=== PATIENT | female | born 1965 | race Caucasian/White ===

== ENCOUNTER 2021-05-01 16:26 | Inpatient (IN) | payer MEDICAID ==
[~2021-05-01] VITALS: Ht 165.1 cm; Wt 81.6 kg
[2021-05-01] MEDS ORDERED: VALIUM5 MG PO (16:32)
[2021-05-01] MEDS ORDERED: PROAIR HFA8.5 G1 INH (16:32)
[2021-05-01] MEDS ORDERED: ZOLOFT100 MG PO (16:32)
[2021-05-01 16:55] LABS: BASOPHILS 0.6 % (0-2); EOSINOPHILS 0.8 % (0-7); HEMATOCRIT 44.7 % (36.0-48.0); HEMOGLOBIN 14.8 g/dL (12-16); LYMPHOCYTES 19.9 % (15-50); MCH 28.4 pg (26.0-34.0); MCHC 33.2 g/dL (31.0-37.0); MCV 85.4 fL (80.0-100.0); MEAN PLATELET VOLUME 8.6 fL (7.4-10.4); MONOCYTES 4.9 % (2-11); NEUTROPHILS 73.8 % (40-80); PLATELET COUNT 129 10x3/uL (130-400); RBC 5.23 10x6/uL (4.00-5.40); RDW 14.9 % (11.5-14.5); WBC 7.3 10x3/uL (4.8-10.8)
[2021-05-01 16:58] LABS: ANION GAP 14.6 mmol/L (8-16); CALCIUM 8.9 mg/dL (8.5-10.1); CARBON DIOXIDE 23.4 mmol/L (21.0-32.0); CREATININE - SERUM 0.9 mg/dL (0.6-1.3)
[2021-05-01 17:03] LABS: BILIRUBIN NEGATIVE (NEGATIVE); KETONE NEGATIVE mg/dL (< 1+); NITRITE NEGATIVE (NEGATIVE); SQUAMOUS EPITHELIAL 5 HPF (0-4); UROBILINOGEN 2 mg/dL (< 2); WHITE CELLS - URINE 5 HPF (0-4)
[2021-05-01 17:06] LABS: ALBUMIN 3.5 g/dL (3.4-5.0); BILIRUBIN - TOTAL 0.51 mg/dL (0.2-1.3); MAGNESIUM - SERUM 2.1 mg/dL (1.8-2.4)
[2021-05-01 17:46] LABS: INR 1.23 (0.85-1.17); PROTIME 14.3 SECONDS (11.6-15.0)
[2021-05-01 18:08] LABS: UDS - AMPHET NEGATIVE QUAL (NEGATIVE); UDS - BARB NEGATIVE QUAL (NEGATIVE); UDS - BENZO POSITIVE QUAL (NEGATIVE); UDS - COCAINE NEGATIVE QUAL (NEGATIVE); UDS - OPIATE NEGATIVE QUAL (NEGATIVE); UDS - PCP NEGATIVE QUAL (NEGATIVE); UDS - THC NEGATIVE QUAL (NEGATIVE)
[2021-05-01 22:56] VITALS: BP 147/77
--- NOTE | 2021-05-02 03:57 | NUR ---
I have reviewed this patient and I concur with the Shift Assessment completed by the Licensed Practical Nurse today this shift.
[2021-05-02 05:15] VITALS: BP 104/64
[2021-05-02 06:58] LABS: ALBUMIN 3.2 g/dL (3.4-5.0); ALKALINE PHOSPHATASE 74 U/L (30-120); ALT (SGPT) 46 U/L (10-68); BILIRUBIN - TOTAL 0.46 mg/dL (0.2-1.3); CALC OSMOLALITY 280 mosm/kg (275-300); CARBON DIOXIDE 21.5 mmol/L (21.0-32.0); CHLORIDE - SERUM 110 mmol/L (98-107); CREATININE - SERUM 0.7 mg/dL (0.6-1.3); GLUCOSE 124 mg/dL (74-106); PHOSPHOROUS 3.6 mg/dL (2.5-4.9); POTASSIUM - SERUM 4.1 mmol/L (3.5-5.1); PROTEIN - SERUM 6.3 g/dL (6.4-8.2); SODIUM 141 mmol/L (136-145); UREA NITROGEN 11 mg/dL (7-18); eGFR NON AFRICAN AMERICAN > 90 mL/min (90-120)
[2021-05-02 06:59] LABS: MAGNESIUM - SERUM 2.8 mg/dL (1.8-2.4)
[2021-05-02 07:43] LABS: BASOPHILS 0.5 % (0-2); EOSINOPHILS 2.5 % (0-7); HEMATOCRIT 39.6 % (36.0-48.0); HEMOGLOBIN 13.1 g/dL (12-16); LYMPHOCYTES 40.4 % (15-50); MCH 28.2 pg (26.0-34.0); MCHC 33.1 g/dL (31.0-37.0); MCV 85.2 fL (80.0-100.0); MEAN PLATELET VOLUME 8.4 fL (7.4-10.4); MONOCYTES 7.3 % (2-11); NEUTROPHILS 49.3 % (40-80); RBC 4.64 10x6/uL (4.00-5.40); RDW 15.1 % (11.5-14.5)
--- NOTE | 2021-05-02 07:49 | NUR ---
AAOX4 UPON ENTERING. ADMINISTERED MEDICATION, NO DIFFICULTIES. RESTING IN BED, DENIES ANY NEEDS AT THIS TIME. BED IN LOWEST POSITION, BED RAILS X2, CALL LIGHT WITHIN REACH. WILL CONTINUE POC. ASSESSMENT PERFORMED
[2021-05-02 08:08] LABS: PLATELET COUNT 80 10x3/uL (130-400); WBC 3.1 10x3/uL (4.8-10.8)
[2021-05-02 08:37] LABS: PLATELET ESTIMATE DECREASED
[2021-05-02 09:14] VITALS: BP 113/68
--- NOTE | 2021-05-02 10:30 | NUR ---
PRN ZOFRAN AND ATIVAN IV, TOLERATED WELL. RESTING COMFORTABLY IN BED. DENIES ANY NEEDS AT THIS TIME. WILL CONTINUE POC.
--- NOTE | 2021-05-02 12:19 | NUR ---
CALLED LAB AT THIS TIME AND INFORMED OF NEED OF STAT AMMONIA LEVEL. INFORMED A PHLEBO IS HEADED HERE NOW.
--- NOTE | 2021-05-02 13:00 | NUR ---
PRN ATIVAN FOR ANXIETY. UP RIGHT IN BED. DENIES FURTHER NEEDS AT THIS TIME. WILL CONTINUE POC.
[2021-05-02 13:20] VITALS: Ht 165.1 cm; Wt 81.6 kg
[2021-05-02 13:37] VITALS: BP 113/57
--- NOTE | 2021-05-02 15:06 | NUR ---
PRN ATIVAN FOR ANXIETY. REGULAR MEDICATION GIVEN, NO DIFFICULTIES. COMPLAINING OF RESTLESS LEGS. EDUCATED THAT SCD'S COULD HELP, SHE AGREED TO WEAR THEM. DENIES FURTHER NEEDS AT THIS TIME. WILL CONTINUE POC.
[2021-05-02 17:21] VITALS: BP 114/66
--- NOTE | 2021-05-02 17:57 | NUR ---
IV TO LEFT FOREARM GONE BAD, STARTED NEW IV TO RIGHT FOREARM. WILL CONT TO MONITOR.
[2021-05-02 20:00] VITALS: BP 120/68
[2021-05-03 06:33] VITALS: BP 105/62
[2021-05-03 07:30] LABS: INR 1.25 (0.85-1.17); PROTIME 14.5 SECONDS (11.6-15.0)
--- NOTE | 2021-05-03 07:30 | NUR ---
PT EASILY AWAKENED. LAYING ON LEFT SIDE. STATES SHE IS HUNGRY AND WHERE IS BREAKFAST. CL IN REACH. NO NEEDS AT THIS TIME. WCTM
[2021-05-03 07:38] LABS: HEMATOCRIT 40.4 % (36.0-48.0); LYMPHOCYTE ABS# 1.11 10x3/uL (1.18-3.74); MCH 28.4 pg (26.0-34.0); MCHC 32.2 g/dL (31.0-37.0); MEAN PLATELET VOLUME 11.6 fL (7.4-10.4); NEUTROPHIL ABS# 1.18 10x3/uL (1.56-6.13); PLATELET COUNT 74 10x3/uL (130-400); RBC 4.58 10x6/uL (4.00-5.40); RDW 13.9 % (11.5-14.5); WBC 2.5 10x3/uL (4.8-10.8)
[2021-05-03 07:39] LABS: MCV 88.2 fL (80.0-100.0)
[2021-05-03 08:02] LABS: EOSINOPHILS 9 % (0-7); LYMPHOCYTES 43 % (15-50); NEUTROPHILS 48 % (40-80); PLATELET ESTIMATE DECREASED
[2021-05-03 08:03] LABS: ALBUMIN 2.9 g/dL (3.4-5.0); ANION GAP 9.6 mmol/L (8-16); BILIRUBIN - TOTAL 0.59 mg/dL (0.2-1.3); CALCIUM 8.3 mg/dL (8.5-10.1); CARBON DIOXIDE 26.4 mmol/L (21.0-32.0); MAGNESIUM - SERUM 2.3 mg/dL (1.8-2.4); PHOSPHOROUS 3.4 mg/dL (2.5-4.9); PROTEIN - SERUM 6.8 g/dL (6.4-8.2)
[2021-05-03 08:04] LABS: CREATININE - SERUM 0.9 mg/dL (0.6-1.3)
[2021-05-03 08:37] VITALS: BP 109/55
--- NOTE | 2021-05-03 10:49 | NUR ---
PT LAYING ON RIGHT SIDE. SLEEPING. NO NEEDS AT THIS TIME. WCTM
[2021-05-03 12:04] VITALS: BP 115/55
[2021-05-03 18:10] VITALS: BP 109/56
[2021-05-03 20:00] VITALS: BP 113/57
[2021-05-04 04:00] VITALS: BP 105/61
[2021-05-04 07:04] LABS: BASOPHILS 0.3 % (0-2); EOSINOPHILS 2.8 % (0-7); HEMATOCRIT 40.8 % (36.0-48.0); HEMOGLOBIN 13.6 g/dL (12-16); LYMPHOCYTES 38.1 % (15-50); MCH 28.6 pg (26.0-34.0); MCHC 33.4 g/dL (31.0-37.0); MEAN PLATELET VOLUME 9.1 fL (7.4-10.4); MONOCYTES 6.8 % (2-11); RBC 4.77 10x6/uL (4.00-5.40); RDW 14.7 % (11.5-14.5); WBC 2.5 10x3/uL (4.8-10.8)
[2021-05-04 07:08] LABS: INR 1.19 (0.85-1.17)
[2021-05-04 07:21] LABS: ALBUMIN 2.9 g/dL (3.4-5.0); BILIRUBIN - TOTAL 0.36 mg/dL (0.2-1.3); CALCIUM 8.6 mg/dL (8.5-10.1); CARBON DIOXIDE 27.1 mmol/L (21.0-32.0); CREATININE - SERUM 0.9 mg/dL (0.6-1.3); MAGNESIUM - SERUM 2.3 mg/dL (1.8-2.4); PHOSPHOROUS 3.9 mg/dL (2.5-4.9); POTASSIUM - SERUM 4.1 mmol/L (3.5-5.1); PROTEIN - SERUM 6.7 g/dL (6.4-8.2)
[2021-05-04 07:23] LABS: MCV 85.6 fL (80.0-100.0); PLATELET COUNT 89 10x3/uL (130-400)
--- NOTE | 2021-05-04 07:24 | NUR ---
RESTING,WITHOUT NEEDS. INSURANCE PLAN SPECIALIST CHECKING VITAL SIGNS.CALL LIGHT IN REACH
--- NOTE | 2021-05-04 08:07 | NUR ---
PATIENT SCREAMING OUT INTO THE HALLWAY FOR NURSE AND HER MEDICATIONS. ADMINIATERED PRN MEDICATIONS WITH SCHEDULED MEDICATIONS. CONTINUE WITH PLAN OF CARE
[2021-05-04 09:09] VITALS: BP 107/63
--- NOTE | 2021-05-04 10:38 | NUR ---
PATIENT YELLING FOR NURSE FOR MEDICATIONS, ADMINISTERED PRN MEDICATION NO OTHER NEEDS AT THIS TIME. CONTINUE WITH PLAN OF CARE
--- NOTE | 2021-05-04 12:42 | NUR ---
PATIENT ASLEEP IN BED. NO SIGNS OF DISTRESS, CL IN REACH, CONTINUE WITH PLAN OF CARE
--- NOTE | 2021-05-04 12:59 | NUR ---
PATIENT C/O NAUSEA, ADMINISTER PRN MEDICATUON
[2021-05-04 13:30] VITALS: BP 108/64
--- NOTE | 2021-05-04 16:03 | MORECARE ---
CASE MANAGEMENT DISCHARGE SUMMARY PATIENT: DEB HYATT UNIT: [id number] ADM DATE: 05/01/21 AGE: 55 : 61 SEX: F ROOM/BED: D.2224 AUTHOR: YANICK,DOC PHYSICIAN: REFERRING PHYSICIAN: JUANY DYE MD DATE OF SERVICE: 05/04/21 Case Management Discharge Planning Summary COMMENTS ENTERED DATE: 05/04/21 15:59 CT COMMENT TYPE: Discharge Planning REVIEWER: Irene Mehta PATIENT STATES HAS A BED WAITING AT [facility]. I HAVE CALLED AND TALKED WITH LAKE AT [facility] AND CONFIRMED THAT THEY DO HAVE A BED FOR HER. SHE WILL BE DISCHARGED TO [facility] AND SOMEONE FROM [facility] WILL PICK HER UP. [facility] PHONE NUMBER IS [phone]. [place] TO FOLLOW AND ASSIST NEEDED. DCP REVIEW SUMMARY ANTICIPATED D/C DATE: EXPECTED LOS : CASE STATUS: DCP Initiated INITIAL REVIEW: 05/01/2021 INITIAL REVIEWER: Irene Mheta FINAL DISCHARGE DISPOSITION: : FINAL REVIEWER: FINAL REVIEW DATE: DCP Focus Questions & Answers DCP Screen QUESTION: ANSWER High Risk Factors: : Poor social support DCP Evaluation QUESTION: ANSWER Patient's ability to cope with chronic illness : d. No chronic illness Would patient like to participate in any Care Coordination programs (if applicable): : Not applicable Mental health screen: : No mental health history DCP Re-evaluation QUESTION: ANSWER Would patient like to participate in any Care Coordination programs (if applicable): : Not applicable PATIENT: DEB HYATT ENCOUNTER: [id number] MEDICAL RECORD#: [id number] ADMISSION DATE: 05/01/2021 DISCHARGE DATE: ATTENDING MD: JUANY STEPHENSON : AGE: 55 MARITAL STATUS: S DC PLAN ID: [id number] FACILITY: [facility] PRINTED ON: 05/04/21 16:03 CT All edits/amendments must be made on the electronic document DICTATION DATE: 05/04/211602 EVENING ANCHOR: TITO 05/04/211602 RPT#: [id number] DC DATE: STATUS: ADM IN [facility] [address] [place] [address] END OF REPORT
[2021-05-04] MEDS ORDERED: ATIVAN1 MG PO (16:07)
--- NOTE | 2021-05-04 16:33 | NUR ---
PATIENT DC TO [facility], WENT OVER PAPERWORK WITH PATIENT IV DC WITH CATH INTACT. PATIENT TAKEN TO FRONT OF HOSPITAL WHERE [facility] EMPLOYEE WAS TO PICK PATIENT UP
--- NOTE | 2021-05-04 17:43 | MORECARE ---
CASE MANAGEMENT DISCHARGE SUMMARY PATIENT: DEB HYATT UNIT: [id number] ADM DATE: 05/01/21 AGE: 55 : 61 SEX: F ROOM/BED: D.2224 AUTHOR: YANICK,DOC PHYSICIAN: REFERRING PHYSICIAN: JUANY DYE MD DATE OF SERVICE: 05/04/21 Case Management Discharge Planning Summary COMMENTS ENTERED DATE: 05/04/21 15:59 CT COMMENT TYPE: Discharge Planning REVIEWER: Irene Mehta PATIENT STATES HAS A BED WAITING AT [facility]. I HAVE CALLED AND TALKED WITH LAKE AT [facility] AND CONFIRMED THAT THEY DO HAVE A BED FOR HER. SHE WILL BE DISCHARGED TO [facility] AND SOMEONE FROM [facility] WILL PICK HER UP. [facility] PHONE NUMBER IS [phone]. [place] TO FOLLOW AND ASSIST NEEDED. DCP REVIEW SUMMARY ANTICIPATED D/C DATE: EXPECTED LOS : CASE STATUS: DCP Initiated INITIAL REVIEW: 05/01/2021 INITIAL REVIEWER: Irene Mehta FINAL DISCHARGE DISPOSITION: : FINAL REVIEWER: FINAL REVIEW DATE: DCP Focus Questions & Answers DCP Screen QUESTION: ANSWER High Risk Factors: : Poor social support DCP Evaluation QUESTION: ANSWER Patient's ability to cope with chronic illness : d. No chronic illness Would patient like to participate in any Care Coordination programs (if applicable): : Not applicable Mental health screen: : No mental health history DCP Re-evaluation QUESTION: ANSWER Would patient like to participate in any Care Coordination programs (if applicable): : Not applicable PATIENT: DEB HYATT ENCOUNTER: [id number] MEDICAL RECORD#: [id number] ADMISSION DATE: 05/01/2021 DISCHARGE DATE: 05/04/2021 ATTENDING MD: JUANY STEPHENSON : AGE: 55 MARITAL STATUS: S DC PLAN ID: [id number] FACILITY: [facility] PRINTED ON: 05/04/21 17:43 CT All edits/amendments must be made on the electronic document DICTATION DATE: 05/04/211742 DIRECTOR OF CODING: TITO 05/04/211742 RPT#: [id number] DC DATE:05/04/21 STATUS: DIS IN [facility] [address] [place] [address] END OF REPORT
--- NOTE | 2021-05-05 15:35 | MORECARE ---
CASE MANAGEMENT DISCHARGE SUMMARY PATIENT: DEB HYATT UNIT: [id number] ADM DATE: 05/01/21 AGE: 55 : 61 SEX: F ROOM/BED: D.2224 AUTHOR: YANICK,DOC PHYSICIAN: REFERRING PHYSICIAN: JUANY DYE MD DATE OF SERVICE: 05/05/21 Case Management Discharge Planning Summary COMMENTS ENTERED DATE: 05/04/21 15:59 CT COMMENT TYPE: Discharge Planning REVIEWER: Irene Mehta PATIENT STATES HAS A BED WAITING AT [facility]. I HAVE CALLED AND TALKED WITH LAKE AT [facility] AND CONFIRMED THAT THEY DO HAVE A BED FOR HER. SHE WILL BE DISCHARGED TO [facility] AND SOMEONE FROM [facility] WILL PICK HER UP. [facility] PHONE NUMBER IS [phone]. [place] TO FOLLOW AND ASSIST NEEDED. DCP REVIEW SUMMARY ANTICIPATED D/C DATE: EXPECTED LOS : CASE STATUS: DCP Initiated INITIAL REVIEW: 05/01/2021 INITIAL REVIEWER: Irene Mehta FINAL DISCHARGE DISPOSITION: : FINAL REVIEWER: FINAL REVIEW DATE: DCP Focus Questions & Answers DCP Screen QUESTION: ANSWER High Risk Factors: : Poor social support DCP Evaluation QUESTION: ANSWER Patient's ability to cope with chronic illness : d. No chronic illness Would patient like to participate in any Care Coordination programs (if applicable): : Not applicable Mental health screen: : No mental health history DCP Re-evaluation QUESTION: ANSWER Would patient like to participate in any Care Coordination programs (if applicable): : Not applicable PATIENT: DEB HYATT ENCOUNTER: [id number] MEDICAL RECORD#: [id number] ADMISSION DATE: 05/01/2021 DISCHARGE DATE: 05/04/2021 ATTENDING MD: JUANY STEPHENSON : AGE: 55 MARITAL STATUS: S DC PLAN ID: [id number] FACILITY: [facility] PRINTED ON: 05/05/21 15:35 CT All edits/amendments must be made on the electronic document DICTATION DATE: 05/05/211534 HUMAN RESOURCES DIRECTOR: TITO 05/05/211534 RPT#: [id number] DC DATE:05/04/21 STATUS: DIS IN [facility] [address] [place] [address] END OF REPORT
== END 2021-05-04 17:34 | disposition home or self-care (01) | DRG 897 ==
LOC: D.ER 16:26 → D.EDHOLD 17:58 → D.MS 17:58
PROVIDERS: Emergency Medicine; ADMIT Emergency Medicine; ATTEND Emergency Medicine
DX: F10.231 Alcohol dependence with withdrawal delirium (principal); D68.59 Other primary thrombophilia; F43.10 Post-traumatic stress disorder, unspecified; I10 Essential (primary) hypertension; F32.9 Major depressive disorder, single episode, unspecified; F17.200 Nicotine dependence, unspecified, uncomplicated

== ENCOUNTER 2021-05-10 21:10 | Emergency (ER) | payer MEDICAID ==
[~2021-05-10 21:10] MED LIST: ATIVAN1 MG PO; PROAIR HFA8.5 G1 INH; VALIUM5 MG PO; ZOLOFT100 MG PO
[2021-05-10 21:11] VITALS: Ht 165.1 cm
[2021-05-10 21:52] VITALS: BP 137/83
[2021-05-10 22:49] LABS: BILIRUBIN NEGATIVE (NEGATIVE); KETONE NEGATIVE mg/dL (< 1+); NITRITE NEGATIVE (NEGATIVE); SQUAMOUS EPITHELIAL 1 HPF (0-4); UDS - AMPHET NEGATIVE QUAL (NEGATIVE); UDS - BARB NEGATIVE QUAL (NEGATIVE); UDS - BENZO POSITIVE QUAL (NEGATIVE); UDS - COCAINE NEGATIVE QUAL (NEGATIVE); UDS - OPIATE NEGATIVE QUAL (NEGATIVE); UDS - PCP NEGATIVE QUAL (NEGATIVE); UDS - THC NEGATIVE QUAL (NEGATIVE); UROBILINOGEN 2 mg/dL (< 2); WHITE CELLS - URINE 3 HPF (0-4)
== END 2021-05-10 23:14 | disposition left against medical advice (07) ==
LOC: D.ER 21:10
PROVIDERS: Emergency Medicine
DX: R56.9 Unspecified convulsions (principal); F10.20 Alcohol dependence, uncomplicated; S50.02XA Contusion of left elbow, initial encounter; S22.009A Unspecified fracture of unspecified thoracic vertebra, initial encounter for closed fracture; W19.XXXA Unspecified fall, initial encounter; I10 Essential (primary) hypertension; J44.9 Chronic obstructive pulmonary disease, unspecified